=== PATIENT | female | born 2000 | race Caucasian/White ===

== ENCOUNTER 2023-10-29 01:27 | Emergency (ER) | payer MEDICAID ==
[~2023-10-29] VITALS: Ht 162.6 cm; Wt 93.9 kg
[2023-10-29 01:33] VITALS: BP_SYST 119; PULSE 88; RESP 20; TEMP 97.6; O2SAT 100
[2023-10-29] MEDS: NACL 0.9% 1,000 ML IV ONE (03:01)
[2023-10-29 03:43] LABS: ALBUMIN 3.8 g/dL (3.4-4.8); CALCIUM 9.1 mg/dL (8.4-11.0); CREATININE 0.94 mg/dL (0.55-1.30); TOTAL BILIRUBIN 0.3 mg/dL (0.0-1.0)
[2023-10-29 03:48] LABS: BASOPHILS % (AUTO) 0.5 % (0.0-2.0); EOSINOPHILS # (AUTO) 0.1 K/uL (0.0-0.4); HEMATOCRIT 40.3 % (36-48); HEMOGLOBIN 13.3 g/dL (12.0-16.0); LYMPHOCYTES # (AUTO) 2.1 K/uL (1.0-5.5); LYMPHOCYTES % (AUTO) 21.9 % (20.5-51.5); MEAN CORPUSCULAR HEMOGLOBIN 27 pg (27-31); MEAN CORPUSCULAR HGB CONC 33 % (32-36); MEAN CORPUSCULAR VOLUME 82 fL (79.0-98.0); MONOCYTES # (AUTO) 0.4 K/uL (0.0-1.0); MONOCYTES % (AUTO) 4.4 % (1.7-9.3); NEUTROPHILS # (AUTO) 6.8 K/uL (1.8-7.7); NEUTROPHILS % (AUTO) 72.2 % (40.0-70.0); PLATELET COUNT (AUTO) 337 K/uL (130-430); RED BLOOD CELL COUNT(AUTO) 4.89 MIL/uL (4.2-6.2); RED CELL DISTRIBUTION WIDTH 16.1 % (9.0-15.0); WHITE BLOOD COUNT (AUTO) 9.4 K/uL (4.8-10.8)
[2023-10-29 03:50] LABS: POTASSIUM 2.6 mmol/L (3.5-5.1)
[2023-10-29] MEDS: POTASSIUM CHLORIDE 20 MEQ TABLET.ER PO ONE (04:05)
[2023-10-29 04:24] LABS: BARBITURATE, URINE NEGATIVE (NEG <=200); BENZODIAZEPINE, URINE NEGATIVE (NEG <=150); CANNABINOID, URINE NEGATIVE (NEG <=50); COCAINE, URINE NEGATIVE (NEG <=150); METHAMPHETAMINES SCREEN,URINE NEGATIVE (NEG <=500); OPIATE, URINE NEGATIVE (NEG <=100); PHENCYCLIDINE SCREEN,URINE NEGATIVE (NEG <=25); UR TRICYCLIC ANTIDEPRESSANTS NEGATIVE (NEG <=300); URINE AMPHETAMINE NEGATIVE (NEG <=500); URINE METHADONE NEGATIVE (NEG <=200); URINE OXYCODONE SCREEN NEGATIVE (NEG <=100)
[2023-10-29 05:33] VITALS: BP_SYST 119; PULSE 74; RESP 18; TEMP 98; O2SAT 99
== END 2023-10-29 05:33 | disposition home or self-care (01) ==
LOC: SED 01:27
DX: F10.129 Alcohol abuse with intoxication, unspecified (principal); R53.1 Weakness; Z88.1 Allergy status to other antibiotic agents; Z79.899 Other long term (current) drug therapy; Y90.6 Blood alcohol level of 120-199 mg/100 ml
CPT/HCPCS: 99283; 96360; 80307; 80053; 85025; 36415; J7030; G0482